=== PATIENT | male | born 1935 | race Caucasian/White ===

== ENCOUNTER → 2020-05-28 | Day surgery (SDC) | payer MEDICARE, OTHER ==
[~2020-05-28] MED LIST: CYMBALTA 30MG C30 MG PO; FEOSOL325 MG PO; HYDROCODON-ACE1 EAC2 PO; MAG-OXIDE 400M400 MG PO; METOPROLOL TART25 M1 PO; NORCO 5-325 TA1 EAC1 PO; NORCO 5-325 TA1 EACH PO; PROTONIX 40MG T40 MG PO; TAMSULOSIN HCL0.4 MG PO
[2020-05-28 08:59] LABS: HGB 10.2 g/dl (13.2-18.0); MCH 25.4 pg (25.0-31.0); MCV 84.8 fL (78.0-100.0); MPV 11.2 fL (6.0-9.5); RBC 4.01 M/uL (4.70-6.00); WBC 7.5 K/uL (4.0-10.5)
[2020-05-28 09:15] LABS: ALBUMIN 4.1 g/dL (3.4-5.0); BILIRUBIN - TOTAL 0.3 mg/dL (0.2-1.0); BUN/CREAT RATIO (CALC) 19.6 RATIO; CREATININE 1.07 mg/dL (0.67-1.17); GLOBULIN (CALCULATION) 3.5 g/dL; POTASSIUM 3.8 mmol/L (3.5-5.1); TOTAL PROTEIN 7.6 g/dL (6.4-8.2)
[2020-05-28 09:48] LABS: PLT 354 K/uL (150-400)
== END | disposition home or self-care (01) ==
LOC: FAS 07:49
PROVIDERS: Surgery
DX: C18.3 Malignant neoplasm of hepatic flexure (principal); D12.0 Benign neoplasm of cecum; D50.0 Iron deficiency anemia secondary to blood loss (chronic); K29.70 Gastritis, unspecified, without bleeding; K57.30 Diverticulosis of large intestine without perforation or abscess without bleeding; K21.9 Gastro-esophageal reflux disease without esophagitis; M19.90 Unspecified osteoarthritis, unspecified site; I10 Essential (primary) hypertension; Z79.899 Other long term (current) drug therapy; Z20.822 Contact with and (suspected) exposure to COVID-19; Z87.891 Personal history of nicotine dependence
CPT/HCPCS: 36415; 80053; 82378; 88305; J1610; J7120

== ENCOUNTER 2020-06-18 10:58 | Inpatient (IN) | payer MEDICARE, OTHER ==
[~2020-06-18] VITALS: Ht 175 cm; Wt 65.4 kg
[~2020-06-18 10:58] MED LIST changes: -CYMBALTA 30MG C30 MG PO
[2020-06-18 12:16] LABS: HCT 39.7 % (42.0-52.0); HGB 12.2 g/dl (13.2-18.0); MCH 27.6 pg (25.0-31.0); MCHC 30.7 g/dL (32.0-36.0); MCV 89.8 fL (78.0-100.0); MPV 10.7 fL (6.0-9.5); PLT 287 K/uL (150-400); RBC 4.42 M/uL (4.70-6.00); WBC 10.9 K/uL (4.0-10.5)
[2020-06-18 12:52] LABS: ALBUMIN 3.7 g/dL (3.4-5.0); BILIRUBIN - TOTAL 0.3 mg/dL (0.2-1.0); BUN/CREAT RATIO (CALC) 18.3 RATIO; CREATININE 1.09 mg/dL (0.67-1.17); GLOBULIN (CALCULATION) 3.7 g/dL; POTASSIUM 4.4 mmol/L (3.5-5.1); TOTAL PROTEIN 7.4 g/dL (6.4-8.2)
[2020-06-19 06:13] LABS: BASOPHIL 0.1 % (0-2); EOSINOPHIL 0 % (0-7); HCT 36.3 % (42.0-52.0); MCHC 30.3 g/dL (32.0-36.0); MCV 92.4 fL (78.0-100.0); MONOCYTE 7.9 % (0-12); MPV 11.1 fL (6.0-9.5); NEUTROPHIL 80.5 % (41-80); NRBC 0; PLT 256 K/uL (150-400); RBC 3.93 M/uL (4.70-6.00); WBC 13.2 K/uL (4.0-10.5)
[2020-06-19 06:29] LABS: CREATININE 1.05 mg/dL (0.67-1.17)
--- NOTE | 2020-06-19 13:35 | NUR ---
MET WITH PT. HE STATED THAT HE RESIDES WITH HIS GIRLFRIEND. HE HAS A ROLLING WALKER, WHEELCHAIR, CANE. HE DOES NOT WANT HH AND DOES NOT WANT A 3/. EXPLAINED IM AND PT. VOICED UNDERSTANDING AND SIGNED FORM.
[2020-06-20 06:25] LABS: BASOPHIL 0.2 % (0-2); EOSINOPHIL 0.1 % (0-7); HCT 36.7 % (42.0-52.0); HGB 11.5 g/dl (13.2-18.0); LYMPHOCYTE 12.2 % (15-48); MCH 27.8 pg (25.0-31.0); MCHC 31.3 g/dL (32.0-36.0); MCV 88.9 fL (78.0-100.0); MONOCYTE 6.4 % (0-12); MPV 10.7 fL (6.0-9.5); NEUTROPHIL 80.8 % (41-80); NRBC 0; PLT 246 K/uL (150-400); RBC 4.13 M/uL (4.70-6.00); WBC 13.2 K/uL (4.0-10.5)
[2020-06-20 06:43] LABS: BUN/CREAT RATIO (CALC) 18.8 RATIO; CREATININE 0.96 mg/dL (0.67-1.17)
[2020-06-21 14:20] LABS: BILIRUBIN 1+ mg/dL (NEGATIVE); BLOOD NEGATIVE Ery/uL (NEGATIVE); CLARITY CLEAR (CLEAR); COLOR YELLOW (YELLOW); GLUCOSE (U) NORMAL (NORMAL); LEUKOCYTES NEGATIVE Leu/uL (NEGATIVE); NITRITE NEGATIVE (NEGATIVE); PROTEIN 1+ mg/dL (NEGATIVE); SPECIFIC GRAVITY 1.025 (1.001-1.030); UROBILINOGEN 0.2 mg/dL (0.2-1.0)
--- NOTE | 2020-06-21 14:59 | NUR ---
Nurse suggested I visit briefly. I asked Mr. Barnard if he wanted prayer. He said yes. I prayed briefly and then left. He appeared grateful.
[2020-06-22 06:15] LABS: BASOPHIL 0.1 % (0-2); EOSINOPHIL 0 % (0-7); HCT 38.5 % (42.0-52.0); HGB 12.2 g/dl (13.2-18.0); MCH 27.9 pg (25.0-31.0); MCHC 31.7 g/dL (32.0-36.0); MCV 87.9 fL (78.0-100.0); MONOCYTE 6.1 % (0-12); MPV 11.5 fL (6.0-9.5); NEUTROPHIL 86.5 % (41-80); NRBC 0; PLT 295 K/uL (150-400); RBC 4.38 M/uL (4.70-6.00); WBC 11.6 K/uL (4.0-10.5)
[2020-06-22 06:35] LABS: BUN/CREAT RATIO (CALC) 23.4 RATIO; CREATININE 0.94 mg/dL (0.67-1.17); POTASSIUM 3.6 mmol/L (3.5-5.1)
[2020-06-23 06:53] LABS: BASOPHIL 0.4 % (0-2); EOSINOPHIL 0.3 % (0-7); HGB 10.9 g/dl (13.2-18.0); LYMPHOCYTE 11.7 % (15-48); MCHC 31.1 g/dL (32.0-36.0); MONOCYTE 10.7 % (0-12); MPV 11.8 fL (6.0-9.5); NEUTROPHIL 76.6 % (41-80); NRBC 0; PLT 263 K/uL (150-400); RBC 3.89 M/uL (4.70-6.00); WBC 7.6 K/uL (4.0-10.5)
[2020-06-23 06:58] LABS: BUN/CREAT RATIO (CALC) 25.8 RATIO; CREATININE 0.93 mg/dL (0.67-1.17); MAGNESIUM 1.4 mg/dL (1.8-2.4)
--- NOTE | 2020-06-23 18:34 | NUR ---
DR TAYLOR NOTIFIED OF PATIENT REQUEST TO UPGRADE DIET, STATES IS "HUNGRY FOR FIRST TIME" PATIENT HAS BEEN PASSING GAS AND HAD LARGE BM. DIET UPGRADED TO BARIATRIC CLEARS-NON CARBONATED CLEARS
[2020-06-24 05:58] LABS: BASOPHIL 0.5 % (0-2); EOSINOPHIL 2.3 % (0-7); HCT 29.9 % (42.0-52.0); HGB 9.4 g/dl (13.2-18.0); LYMPHOCYTE 21.8 % (15-48); MCH 28.3 pg (25.0-31.0); MCHC 31.4 g/dL (32.0-36.0); MCV 90.1 fL (78.0-100.0); MONOCYTE 10.1 % (0-12); NRBC 0; PLT 191 K/uL (150-400); RBC 3.32 M/uL (4.70-6.00)
[2020-06-24 06:49] LABS: BUN/CREAT RATIO (CALC) 18.8 RATIO; CREATININE 0.96 mg/dL (0.67-1.17); POTASSIUM 3.9 mmol/L (3.5-5.1)
[2020-06-24 07:00] LABS: MAGNESIUM 2.1 mg/dL (1.8-2.4)
--- NOTE | 2020-06-24 18:09 | NUR ---
PT VOIDED 200
--- NOTE | 2020-06-25 11:12 | NUR ---
1052 PATIENT AND SON GIVEN D/C INSTRUCTIONS, VERBALIZED UNDERSTANDING OF INCISION CARE, MEDICATIONS, FOLLOW UP APPOINTMENTS, AND S/S TO WATCH FOR. IV REMOVED, CATHETER INTACT.
[2020-08-05] MEDS ORDERED: CYMBALTA 30MG C30 MG PO (11:37)
[2020-08-05] MEDS ORDERED: HYDROCODON-ACE1 EAC2 PO (11:47)
[2020-09-30] MEDS ORDERED: HYDROCODON-ACE1 EAC2 PO (14:28)
== END 2020-06-25 11:01 | disposition home or self-care (01) | DRG 330 ==
LOC: FMS 10:58 → FSDC 10:58 → FMS 12:30 → FICU 14:32 → FMS 06-19 08:08
PROVIDERS: Allergy & Immunology Allergy; Internal Medicine; ADMIT Surgery
PROC: 0DTF0ZZ Resection of Right Large Intestine, Open Approach (ICD-10-PCS; principal; 2020-06-18 12:30)
DX: C18.3 Malignant neoplasm of hepatic flexure (principal); K56.7 Ileus, unspecified; C77.2 Secondary and unspecified malignant neoplasm of intra-abdominal lymph nodes; G89.29 Other chronic pain; I12.9 Hypertensive chronic kidney disease with stage 1 through stage 4 chronic kidney disease, or unspecified chronic kidney disease; N18.30 Chronic kidney disease, stage 3 unspecified; N40.0 Benign prostatic hyperplasia without lower urinary tract symptoms; K21.9 Gastro-esophageal reflux disease without esophagitis; I25.10 Atherosclerotic heart disease of native coronary artery without angina pectoris; R06.6 Hiccough; E83.42 Hypomagnesemia; M48.00 Spinal stenosis, site unspecified; I08.8 Other rheumatic multiple valve diseases; D50.9 Iron deficiency anemia, unspecified; R00.1 Bradycardia, unspecified; Z98.890 Other specified postprocedural states; Z87.891 Personal history of nicotine dependence; Z89.421 Acquired absence of other right toe(s)
CPT/HCPCS: 36415; 74018; 80048; 80053; 81003; 83735; 85025; 88341; 88342; 94010; 94667; 94668; 97162; 97166; 97530-GP; 97535; C9113; J0360; J0694; J0780; J1100; J1170; J1650; J1885; J2250; J2270; J2405; J2704; J2710; J3010; J3475; J3480; J7030; J7120; U0002

== ENCOUNTER → 2021-06-30 | Day surgery (SDC) | payer MEDICARE, OTHER ==
[~2021-06-30] VITALS: Ht 175.3 cm; Wt 62.7 kg
[~2021-06-30] MED LIST changes: +ARNUITY ELLIPT50 MCG; +CYMBALTA 30MG C30 MG PO; +HYDROCODON-ACE1 EAC6 PO; -METOPROLOL TART25 M1 PO; +MIRALAX17 GM PO; +PRINIVIL10 MG PO; +TOPROL XL 25MG25 MG PO; +VICODIN 10/3251 EACH PO; +VITAMIN B-121000 MC1 PO
[2021-06-30 07:50] LABS: HGB 14.1 g/dl (13.2-18.0); MCH 31.1 pg (25.0-31.0); MCHC 33.6 g/dL (32.0-36.0); MCV 92.7 fL (78.0-100.0); MPV 10.1 fL (6.0-9.5); RBC 4.53 M/uL (4.70-6.00); RDW 13.4 % (11.5-14.0); WBC 9.1 K/uL (4.0-10.5)
[2021-06-30 08:06] LABS: ALBUMIN 4.6 g/dL (3.4-5.0); BILIRUBIN - TOTAL 0.4 mg/dL (0.2-1.0); BUN/CREAT RATIO (CALC) 21.8 RATIO; CREATININE 1.33 mg/dL (0.67-1.17); GLOBULIN (CALCULATION) 3.7 g/dL; POTASSIUM 4.9 mmol/L (3.5-5.1); TOTAL PROTEIN 8.3 g/dL (6.4-8.2)
== END | disposition home or self-care (01) ==
LOC: FAS 07:15
PROVIDERS: Surgery
DX: Z12.11 Encounter for screening for malignant neoplasm of colon (principal); Z86.010 Personal history of colon polyps; Z85.038 Personal history of other malignant neoplasm of large intestine; Z87.891 Personal history of nicotine dependence; N40.0 Benign prostatic hyperplasia without lower urinary tract symptoms; I10 Essential (primary) hypertension
CPT/HCPCS: 36415; 80053; 82378; J2250; J2704; J7120

== ENCOUNTER 2021-12-08 12:11 | Inpatient (IN) | payer MEDICARE, OTHER ==
[~2021-12-08] VITALS: Ht 175.3 cm; Wt 64.5 kg
[2021-12-08 13:23] LABS: BASOPHIL 0.5 % (0-2); EOSINOPHIL 0.5 % (0-7); HCT 39.2 % (42.0-52.0); HGB 13.2 g/dl (13.2-18.0); MCH 30.8 pg (25.0-31.0); MCHC 33.7 g/dL (32.0-36.0); MCV 91.4 fL (78.0-100.0); MPV 11.4 fL (6.0-9.5); NEUTROPHIL 79.7 % (41-80); NRBC 0; PLT 255 K/uL (150-400); RBC 4.29 M/uL (4.70-6.00); RDW 13.5 % (11.5-14.0); WBC 9.9 K/uL (4.0-10.5)
[2021-12-08 13:31] LABS: BILIRUBIN NEGATIVE (NEGATIVE); BLOOD NEGATIVE Ery/uL (NEGATIVE); CLARITY CLEAR (CLEAR); COLOR YELLOW (YELLOW); GLUCOSE (U) NORMAL (NORMAL); LEUKOCYTES NEGATIVE Leu/uL (NEGATIVE); NITRITE NEGATIVE (NEGATIVE); PROTEIN NEGATIVE (NEGATIVE); UROBILINOGEN 0.2 mg/dL (0.2-1.0)
[2021-12-08 13:44] LABS: BUN/CREAT RATIO (CALC) 17.5 RATIO; CREATININE 1.2 mg/dL (0.67-1.17); POTASSIUM 4.2 mmol/L (3.5-5.1)
[2021-12-09 06:55] LABS: BASOPHIL 0.4 % (0-2); EOSINOPHIL 1.2 % (0-7); HCT 32.7 % (42.0-52.0); HGB 10.6 g/dl (13.2-18.0); LYMPHOCYTE 20.3 % (15-48); MCH 30.7 pg (25.0-31.0); MCHC 32.4 g/dL (32.0-36.0); MCV 94.8 fL (78.0-100.0); MONOCYTE 8.9 % (0-12); NEUTROPHIL 68.7 % (41-80); NRBC 0; PLT 203 K/uL (150-400); RBC 3.45 M/uL (4.70-6.00); RDW 13.9 % (11.5-14.0); WBC 8.2 K/uL (4.0-10.5)
[2021-12-09 07:12] LABS: ALBUMIN 3.3 g/dL (3.4-5.0); BILIRUBIN - TOTAL 0.5 mg/dL (0.2-1.0); BUN/CREAT RATIO (CALC) 16.8 RATIO; CREATININE 1.07 mg/dL (0.67-1.17); GLOBULIN (CALCULATION) 2.9 g/dL; POTASSIUM 4.2 mmol/L (3.5-5.1); TOTAL PROTEIN 6.2 g/dL (6.4-8.2)
--- NOTE | 2021-12-09 15:12 | NUR ---
12/09/21 Mr Barnard shares a home with his girlfriend, Safia Wilkinson. He was modified I with mobility using a cane. Mr. Barnard also has a s. chair, 3in1, wc, and rw. A referral was made to [facility] per Mr. Barnard's request. Please notify [facility] at [phone] if patient discharges over the weekend.
--- NOTE | 2021-12-09 18:32 | NUR ---
PATIENT WAS TAKEN DOWN TO OR AT 1545 FOR REPAIR OF HIP FRACTURE, REPORT CALLED AT [phone] PATIENT'S PROCEURE WAS NOT PERFORM R/T EMERGENCY ON OB. PATIENT RETURNED TO FLOOR.
[2021-12-10 04:32] LABS: BILIRUBIN NEGATIVE (NEGATIVE); BLOOD 1+ Ery/uL (NEGATIVE); CLARITY CLEAR (CLEAR); COLOR YELLOW (YELLOW); GLUCOSE (U) NORMAL (NORMAL); LEUKOCYTES NEGATIVE Leu/uL (NEGATIVE); NITRITE NEGATIVE (NEGATIVE); PROTEIN NEGATIVE (NEGATIVE); UROBILINOGEN 0.2 mg/dL (0.2-1.0); pH 5.5 (5.0-9.0)
[2021-12-10 04:43] LABS: BACTERIA TRACE; TRANSITIONAL EPITHELIAL CELLS RARE
--- NOTE | 2021-12-10 05:03 | NUR ---
PT TO SURGERY AT 0509
[2021-12-10 17:09] LABS: BASOPHIL 0.3 % (0-2); EOSINOPHIL 0.2 % (0-7); HCT 32.1 % (42.0-52.0); HGB 10.3 g/dl (13.2-18.0); LYMPHOCYTE 11.9 % (15-48); MCH 30.9 pg (25.0-31.0); MCHC 32.1 g/dL (32.0-36.0); MCV 96.4 fL (78.0-100.0); MONOCYTE 9.2 % (0-12); MPV 10.7 fL (6.0-9.5); NEUTROPHIL 78.1 % (41-80); NRBC 0; PLT 172 K/uL (150-400); RBC 3.33 M/uL (4.70-6.00); RDW 13.5 % (11.5-14.0)
[2021-12-10 17:42] LABS: CREATININE 1.11 mg/dL (0.67-1.17); POTASSIUM 4.9 mmol/L (3.5-5.1)
[2021-12-11 07:18] LABS: BASOPHIL 0.2 % (0-2); EOSINOPHIL 0.2 % (0-7); HCT 26.9 % (42.0-52.0); HGB 8.7 g/dl (13.2-18.0); LYMPHOCYTE 15.2 % (15-48); MCH 30.7 pg (25.0-31.0); MCHC 32.3 g/dL (32.0-36.0); MCV 95.1 fL (78.0-100.0); MONOCYTE 9.6 % (0-12); MPV 11.2 fL (6.0-9.5); NEUTROPHIL 74.3 % (41-80); NRBC 0; PLT 164 K/uL (150-400); RBC 2.83 M/uL (4.70-6.00); RDW 13.8 % (11.5-14.0); WBC 12.6 K/uL (4.0-10.5)
[2021-12-11] MEDS ORDERED: ASPIRIN EC81 MG PO (11:23)
== END 2021-12-11 13:05 | disposition home health service (06) | DRG 522 ==
LOC: FER 12:11 → FMS 14:06
PROVIDERS: Emergency Medicine; Nurse Practitioner Acute Care; Orthopaedic Surgery; ADMIT Internal Medicine
PROC: B24BZZZ Ultrasonography of Heart with Aorta (ICD-10-PCS; 2021-12-10)
PROC: 0SRS0JA Replacement of Left Hip Joint, Femoral Surface with Synthetic Substitute, Uncemented, Open Approach (ICD-10-PCS; principal; 2021-12-10 07:00)
DX: S72.012A Unspecified intracapsular fracture of left femur, initial encounter for closed fracture (principal); J98.11 Atelectasis; I48.0 Paroxysmal atrial fibrillation; I10 Essential (primary) hypertension; I25.10 Atherosclerotic heart disease of native coronary artery without angina pectoris; J44.9 Chronic obstructive pulmonary disease, unspecified; W19.XXXA Unspecified fall, initial encounter; Z20.822 Contact with and (suspected) exposure to COVID-19; I12.9 Hypertensive chronic kidney disease with stage 1 through stage 4 chronic kidney disease, or unspecified chronic kidney disease; N18.9 Chronic kidney disease, unspecified; D63.1 Anemia in chronic kidney disease; Z87.891 Personal history of nicotine dependence; Z82.3 Family history of stroke; Z82.49 Family history of ischemic heart disease and other diseases of the circulatory system; Z79.899 Other long term (current) drug therapy; D50.9 Iron deficiency anemia, unspecified; K21.9 Gastro-esophageal reflux disease without esophagitis; Z90.49 Acquired absence of other specified parts of digestive tract
CPT/HCPCS: 36415; 71045; 73501; 73502; 80048; 80053; 81001; 81003; 85025; 93005; 94010; 94640; 94760; 94762; 96372; 96374; 96375; 96376; 97162; 97166; 97530; 97530-GP; 97535; C1713; C1776; J0171; J0697; J1170; J1885; J2250; J2270; J2310; J2405; J2704; J2795; J3010; J7030; J7120; U0002